=== PATIENT | female | born 1980 | race Caucasian/White ===

== ENCOUNTER 2021-06-16 21:42 | Emergency (ER) | payer OTHER ==
[~2021-06-16] VITALS: Ht 162.6 cm; Wt 67.0 kg
[2021-06-16] MEDS ORDERED: LORazepam 2 MG/ML VIAL IM ONE (21:45)
[2021-06-16] MEDS ORDERED: HALOPERIDOL 5MG/ML VIAL (J1630 PER 1) IM ONE (21:45)
[2021-06-16] MEDS ORDERED: diphenhydrAMINE 50MG/ML VIAL (J1200) IM ONE (21:45)
[2021-06-16] MEDS ORDERED: diphenhydrAMINE 50MG/ML VIAL (J1200) As Ordered ONE (21:46)
[2021-06-16] MEDS ORDERED: HALOPERIDOL 5MG/ML VIAL (J1630 PER 1) As Ordered ONE (21:46)
[2021-06-16] MEDS ORDERED: LORazepam 2 MG/ML VIAL As Ordered ONE (21:47)
[2021-06-16] MEDS ORDERED: NS 1,000 ML IV ONE (21:55)
[2021-06-16 22:24] LABS: BASO # 0.1 10^3/uL (0.0-0.2); BASO % 0.7 % (0.0-1.0); EOS # 0.1 10^3/uL (0.0-0.5); HEMATOCRIT 42.7 % (36.0-47.0); HEMOGLOBIN 14.3 g/dl (12.0-15.5); LYMPH % 33.4 % (24.0-44.0); MEAN CORPUSCULAR HEMOGLOBIN 33.8 pg (27.0-33.0); MEAN CORPUSCULAR HGB CONC 33.5 g/dl (32.0-36.5); MEAN CORPUSCULAR VOLUME 100.9 fl (80.0-96.0); MONO # 0.8 10^3/uL (0.0-0.8); MONO % 8.7 % (2.0-8.0); NEUTROPHILS % 55.9 % (36.0-66.0); PLATELET COUNT, AUTOMATED 305 10^3/uL (150-450); RED BLOOD COUNT 4.23 10^6/uL (4.00-5.40)
[2021-06-16 22:43] LABS: HCG, SERUM QUALITATIVE NEGATIVE (NEGATIVE)
[2021-06-16 22:53] LABS: ACETAMINOPHEN LEVEL < 2.0 UG/ML (10.0-30.0); ALBUMIN 4.4 GM/DL (3.2-5.2); ALT/SGPT 20 U/L (12-78); BILIRUBIN,DIRECT < 0.1 MG/DL (0.0-0.2); BILIRUBIN,TOTAL 0.3 MG/DL (0.2-1.0); BLOOD UREA NITROGEN 7 MG/DL (7-18); CALCIUM LEVEL 8.9 MG/DL (8.5-10.1); CARBON DIOXIDE LEVEL 21 MEQ/L (21-32); CHLORIDE LEVEL 105 MEQ/L (98-107); CREATININE FOR GFR 0.83 MG/DL (0.55-1.30); ETHYL ALCOHOL (ETHANOL) 0.351 % (0.000-0.010); GLOMERULAR FILTRATION RATE > 60.0 (>58); GLUCOSE, FASTING 105 MG/DL (70-100); SALICYLATE LEVEL 2.9 MG/DL (5.0-30.0); SODIUM LEVEL 139 MEQ/L (136-145); TOTAL PROTEIN 7.8 GM/DL (6.4-8.2)
[2021-06-16] MEDS ORDERED: LORazepam 2 MG/ML VIAL IV STA (23:44)
[2021-06-17] MEDS ORDERED: LORazepam 2 MG/ML VIAL IV STA (01:18)
[2021-06-17] MEDS ORDERED: BENZOIN TINCTURE 60ML BTL As Ordered ONE (02:50)
--- NOTE | 2021-06-17 03:08 | REPVR ---
PROCEDURE INFORMATION: Exam: CT Head Without Contrast Exam date and time: 06/16/2021 9:53 PM Age: 41 years old Clinical indication: Injury or trauma; Fall; Concussion/head injury; Additional info: Drug overdose TECHNIQUE: Imaging protocol: Computed tomography of the head without contrast. Radiation optimization: All CT scans at this facility use at least one of these dose optimization techniques: automated exposure control; mA and/or kV adjustment per patient size (includes targeted exams where dose is matched to clinical indication); or iterative reconstruction. COMPARISON: No relevant prior studies available. FINDINGS: Brain: Normal. No hemorrhage. Unremarkable white matter. No mass effect. Cerebral ventricles: No ventriculomegaly. Paranasal sinuses: Visualized sinuses are unremarkable. No fluid levels. Mastoid air cells: Visualized mastoid air cells are well aerated. Bones/joints: Unremarkable. No acute fracture. Soft tissues: Unremarkable. IMPRESSION: No acute intracranial abnormality. Electronically signed by: Alex Venegas On 06/17/2021 03:08:01 AM
--- NOTE | 2021-06-17 03:22 | REPVR ---
PROCEDURE INFORMATION: Exam: CT Maxillofacial Without Contrast Exam date and time: 06/16/2021 9:53 PM Age: 41 years old Clinical indication: Face pain; Additional info: Drug overdose TECHNIQUE: Imaging protocol: Computed tomography images of the face without contrast. Radiation optimization: All CT scans at this facility use at least one of these dose optimization techniques: automated exposure control; mA and/or kV adjustment per patient size (includes targeted exams where dose is matched to clinical indication); or iterative reconstruction. COMPARISON: No relevant prior studies available. FINDINGS: Orbital cavity: Orbits are normal. Globes are unremarkable. Bones/joints: No acute fracture. Paranasal sinuses: Normal. No air-fluid levels. Soft tissues: Unremarkable. IMPRESSION: No acute findings. Electronically signed by: Alex Venegas On 06/17/2021 03:21:52 AM
[2021-06-17] MEDS ORDERED: METAL LOCK LOOP XX ONE (04:21)
--- NOTE | 2021-06-17 04:37 | REPVR ---
PROCEDURE INFORMATION: Exam: CT Cervical Spine Without Contrast Exam date and time: 06/16/2021 9:53 PM Age: 41 years old Clinical indication: Neck pain; Additional info: Drug overdose TECHNIQUE: Imaging protocol: Computed tomography images of the cervical spine without contrast. Radiation optimization: All CT scans at this facility use at least one of these dose optimization techniques: automated exposure control; mA and/or kV adjustment per patient size (includes targeted exams where dose is matched to clinical indication); or iterative reconstruction. COMPARISON: No relevant prior studies available. FINDINGS: Limitations: Sagittal reconstruction images are not available and could not be provided. Bones/joints: The alignment of the spine is grossly normal. There is no evidence of acute fracture. There is a is a dense sclerotic lesion without expansion in the left pedicle and left side of the C7 vertebra, without suspicious features, most likely a bone island. Discs/Spinal canal/Neural foramina: Anterior endplate spurs, uncovertebral ridging, and mild disc space narrowing are present at the C5-C6 level. There is a small disc osteophyte complex at C5-C6 resulting in mild central canal stenosis and bony encroachment upon the bilateral neural foramen. Prevertebral Space: The prevertebral soft tissues appear normal. Lungs: Mild paraseptal emphysema is seen in the visualized lung apices. Soft tissues: The paraspinous soft tissues appear unremarkable. IMPRESSION: 1. No acute fracture identified. 2. Grossly normal alignment. 3. Evidence of degenerative disc disease at C5-C6. Electronically signed by: Kenzie Elizondo On 06/17/2021 04:36:26 AM
[2021-06-17 04:40] LABS: AMPHETAMINES LEVEL URINE NEGATIVE (NEGATIVE); BARBITURATES URINE NEGATIVE (NEGATIVE); BENZODIAZEPINES URINE NEGATIVE (NEGATIVE); CANNABINOIDS URINE POSITIVE (NEGATIVE); COCAINE METABOLITE URINE NEGATIVE (NEGATIVE); METHADONE URINE NEGATIVE (NEGATIVE); OPIATES URINE NEGATIVE (NEGATIVE); PHENCYCLIDINE URINE NEGATIVE (NEGATIVE)
--- NOTE | 2021-06-17 05:03 | REPVR ---
PROCEDURE INFORMATION: Exam: XR Right Hand Exam date and time: 06/17/2021 4:37 AM Age: 41 years old Clinical indication: Pain; Hand; Right; Additional info: Right hand pain, best images possible TECHNIQUE: Imaging protocol: XR Right hand. Views: 3 or more views. COMPARISON: No relevant prior studies available. FINDINGS: Limitations: Assessment of the fingers is limited due to positioning with flexion of the 2nd through 5th fingers on all images. There seems to be a bandage across the hand causing slight artifact. Tubes, catheters and devices: There is IV tubing dorsally at the hand. Bones/joints: There is no evidence of acute fracture or dislocation. Soft tissues: The soft tissues appear grossly unremarkable. IMPRESSION: 1. No acute fracture identified. 2. Assessment of the fingers is limited related to positioning. Electronically signed by: Kenzie Elizondo On 06/17/2021 05:02:33 AM
[2021-06-17] MEDS ORDERED: LORazepam 2 MG TAB PO PRN (05:20)
[2021-06-17] MEDS ORDERED: THIAMINE 100 MG TAB PO SCH ×2 (05:22→09:00)
[2021-06-17 08:26] VITALS: BP 119/89
[2021-06-17] MEDS ORDERED: FOLIC ACID 1 MG TAB PO SCH (09:00)
[2021-06-17] MEDS ORDERED: MULTIVITAMINS/MINERALS THERAP 1 TAB PO SCH (09:00)
--- NOTE | 2021-06-18 19:23 | ECGEPIP ---
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
== END 2021-06-17 08:49 | disposition home or self-care (01) ==
LOC: M ED 21:42
DX: F10.129 Alcohol abuse with intoxication, unspecified (principal); M50.322 Other cervical disc degeneration at C5-C6 level
CPT/HCPCS: 70450; 70486; 72125; 73130; 80048; 80076; 80143; 80307; 82077; 82550; 84443; 84703; 85025; 93005; 93041; 94760; 96361; 96372; 96374; 99285; J1200; J1630; J2060